=== PATIENT | female | born 1950 | race Caucasian/White ===

== ENCOUNTER 2018-10-21 09:48 | Outpatient (CLI) | payer MEDICARE ==
--- NOTE | 2018-10-21 10:21 | RAD ---
Exam:3 views right knee HISTORY: Osteoarthritis COMPARISON: None FINDINGS: Mild loss of joint space height in the lateral compartment. No fracture or malalignment. Sm all suprapatellar effusion. IMPRESSION: 1. Mild degenerative change in the lateral compartment. Small suprapatellar effusion.
--- NOTE | 2018-10-21 11:12 | RAD ---
LEFT KNEE THREE VIEWS: HISTORY: Primary osteoarthritis of both knees. Left knee pain. FINDINGS: There are moderate degenerative changes. No fracture, dislocation, or bony destruction is seen. No joint effusions are identified. IMPRESSION: Left knee osteoarthritis. POS: [facility]
== END 2018-10-21 09:49 | disposition home or self-care (01) ==
LOC: SCSRAD 09:48
PROVIDERS: ATTEND Family Medicine
DX: M17.0 Bilateral primary osteoarthritis of knee (principal); M25.461 Effusion, right knee

== ENCOUNTER 2023-03-09 16:10 | Inpatient (IN) | payer MEDICARE, BC ==
[2023-03-09] MEDS ORDERED: Iopamidol-370 76% 500 ML MDV (1 ML CHARGE) ONE (16:26)
[2023-03-09 16:46] LABS: Hematocrit 27.2 % (36.0-47.0); Mean Corpuscular HGB CONC 33.1 g/dL (32.0-36.0); Mean Corpuscular Hemoglobin 28.8 pg (27.0-31.0); Mean Corpuscular Volume 87.2 fl (78.0-98.0); Mean Platelet Volume 8.8 fL (7.4-10.4); Platelet Count 533 10x3/uL (130-400); Red Blood Cell (RBC) Count 3.12 mill/uL (4.20-5.40); White Blood Cell (WBC) Count 16.4 10x3/uL (4.8-10.8)
[2023-03-09 16:53] LABS: Delete Auto Diff?? YES; Manual Diff?? YES
[2023-03-09 17:09] LABS: ALT (SGPT) 86 U/L (8-55); AST (SGOT) 135 U/L (5-34); Albumin 2.8 g/dL (3.4-4.8); Alkaline Phosphatase 289 U/L (40-110); Anion Gap 17 mmol/L (10-20); BUN (Urea Nitrogen) 10 mg/dL (9.8-20.1); Bilirubin, Total 0.6 mg/dL (0.2-1.2); Calc. Creatinine Clearance 0 mL/min (70-130); Calcium 8.6 mg/dL (7.8-10.44); Carbon Dioxide 21 mmol/L (23-31); Chloride 102 mmol/L (98-107); Estimated GFR 84; Globulin 3.6 g/dL (2.4-3.5); Glucose 124 mg/dL (80-115); Potassium 2.9 mmol/L (3.5-5.1); Protein, Total 6.4 g/dL (5.8-8.1); Sodium 137 mmol/L (136-145)
[2023-03-09 17:20] LABS: Anisocytosis SLIGHT = 6-15 cells HPF (0-5); Band 45 % (5-11); CellaVision Operator ID LAB.MJL; Eosinophils 1 % (0-10); Lymphocytes 3 % (21-51); Metamyelocyte 1 % (0-0); Monocytes 6 % (0-10); Neutrophil 44 % (42-75); Platelet Adequacy Comment Platelets Increased; Polychromasia SLIGHT = 2-3 cells HPF (0-2); Reflex for Review?? YES; Total Cell Count 104
[2023-03-09 17:23] LABS: Lipase 18 U/L (8-78); Magnesium 1.9 mg/dL (1.6-2.6)
[2023-03-09] MEDS ORDERED: fentaNYL 50 mcg/mL 1 mL Vial ONE (17:50)
[2023-03-09] MEDS ORDERED: Piperacillin/Tazobactam 3.375 GM VIAL ONE (18:10)
[2023-03-09] MEDS ORDERED: Piperacillin/Tazobactam 4.5 GM VIAL ONE (18:14)
[2023-03-09] MEDS ORDERED: metroNIDAZOLE 500 MG/100 ML BAG ONE (18:58)
[2023-03-09 19:00] LABS: Troponin I Less than 0.010 ng/mL (< 0.028)
[2023-03-09] MEDS ORDERED: Magnesium Citrate 300 ML BOT PO SCH (19:45)
[2023-03-09 20:28] LABS: Bacteria/HPF None Seen HPF (None Seen); Bilirubin Negative (Negative); Blood, Urine Negative (Negative); CAUTI Indications for Culture Fever or rigors; Clarity Clear (Clear); Glucose, Urine (Dipstick) Normal (Negative); Ketone, Urine Negative (Negative); Leukocyte Negative Leu/uL (Negative); Nitrite Negative (Negative); Protein, Urine (Dipstick) 10 mg/dL (Neg-Trace); RBC/HPF 0-3 HPF (0-3); Specific Gravity, Urine 1.031 (1.002-1.036); Squamous Epithelial 0-3 HPF (0-3); Urobilinogen Normal mg/dL (Less than 2); WBC/HPF 0-3 HPF (0-3); pH, Urine 5.5 (5.0-9.0)
[2023-03-09 20:30] LABS: Urine Culture Reflex No No
[2023-03-09] MEDS ORDERED: Glucagon 1 MG/ML KIT IM PRN (20:46)
[2023-03-09] MEDS ORDERED: Morphine 4 MG/ML VIAL SLOW IVP PRN (20:46)
[2023-03-09] MEDS ORDERED: TETANUS, DIPHTHERIA TOX,ADULT (TDVAX) 0.5 ML VIAL IM ONE (20:46)
[2023-03-09] MEDS ORDERED: HumaLOG 300 UNITS/3 ML VIAL SC PRN (20:46)
[2023-03-09] MEDS ORDERED: hydrALAZINE 20 MG/ML VIAL SLOW IVP PRN (20:46)
[2023-03-09] MEDS ORDERED: Dextrose 50% Abboject 50 ML SYRINGE SLOW IVP PRN (20:46)
[2023-03-09] MEDS ORDERED: Dextrose 5% in Water 1,000 ML IV PRN (20:46)
[2023-03-09] MEDS ORDERED: Ondansetron PF 4 MG/2 ML Vial IVP PRN (20:46)
[2023-03-09] MEDS ORDERED: Ondansetron ODT 4 MG TAB PO PRN (20:46)
[2023-03-09] MEDS ORDERED: Morphine 2 MG/ML VIAL SLOW IVP PRN (20:46)
[2023-03-09] MEDS: Piperacillin/Tazobactam 3.375 GM in Sodium Chloride 0.9% 100 ML IVPB SCH (23:44)
[2023-03-09] MEDS: Potassium Chloride 20 MEQ in Lactated Ringer's 1,000 ML IV SCH (23:44)
[2023-03-09] MEDS: Ketorolac Tromethamine 30 MG/ML VIAL IVP SCH (23:44)
[2023-03-10 04:04] VITALS: BMI 30.6
[2023-03-10] MEDS: Piperacillin/Tazobactam 3.375 GM in Sodium Chloride 0.9% 100 ML IVPB SCH ×3 (06:24→21:48)
[2023-03-10] MEDS: Levothyroxine Sodium 112 MCG TAB PO SCH (06:25)
[2023-03-10] MEDS: Ketorolac Tromethamine 30 MG/ML VIAL IVP SCH ×3 (06:25→17:38)
[2023-03-10 06:53] LABS: Hematocrit 26.4 % (36.0-47.0); Hemoglobin 8.7 g/dL (12.0-16.0); Mean Corpuscular Hemoglobin 28.8 pg (27.0-31.0); Mean Corpuscular Volume 87.4 fl (78.0-98.0); Platelet Count 537 10x3/uL (130-400); RBC Distribution Width 16.2 % (11.5-14.5); Red Blood Cell (RBC) Count 3.02 mill/uL (4.20-5.40); White Blood Cell (WBC) Count 12.6 10x3/uL (4.8-10.8)
[2023-03-10 07:06] LABS: Delete Auto Diff?? YES; Manual Diff?? YES
[2023-03-10 07:17] LABS: Anion Gap 19 mmol/L (10-20); BUN (Urea Nitrogen) 10 mg/dL (9.8-20.1); Calc. Creatinine Clearance 93 mL/min (70-130); Calcium 8.3 mg/dL (7.8-10.44); Carbon Dioxide 21 mmol/L (23-31); Chloride 104 mmol/L (98-107); Estimated GFR 87; Glucose 113 mg/dL (80-115); Potassium 3.1 mmol/L (3.5-5.1); Sodium 141 mmol/L (136-145)
[2023-03-10] MEDS: Potassium Chloride 20 MEQ in Lactated Ringer's 1,000 ML IV SCH ×2 (09:28→16:06)
[2023-03-10] MEDS: Pantoprazole 40 MG VIAL IVP SCH (09:29)
[2023-03-10] MEDS: Saccharomyces boulardii 250 MG CAP PO SCH (09:29)
[2023-03-10] MEDS ORDERED: SUGAMMADEX SODIUM 200 MG/2 ML VIAL ONE (10:09)
[2023-03-10] MEDS ORDERED: Vasopressin 20 UNITS/ML VIAL ONE (10:09)
[2023-03-10] MEDS ORDERED: fentaNYL 50 mcg/mL 1 mL Vial ONE ×3 (10:09→14:53)
[2023-03-10] MEDS ORDERED: Famotidine/PF 20 mg/2ml Vial ONE (10:09)
[2023-03-10 10:23] LABS: Anisocytosis SLIGHT = 6-15 cells HPF (0-5); Band 23 % (5-11); CellaVision Operator ID LAB.NR; Eosinophils 1 % (0-10); Lymphocytes 2 % (21-51); Macrocytosis SLIGHT = 6-15 cells HPF (0-5); Monocytes 4 % (0-10); Neutrophil 70 % (42-75); Platelet Adequacy Comment Platelets Increased; Polychromasia SLIGHT = 2-3 cells HPF (0-2); Total Cell Count 101; Vacuoles SLIGHT
[2023-03-10] MEDS ORDERED: ePHEDrine Sulfate 50 MG/10 ML VIAL ONE ×2 (10:42→12:48)
[2023-03-10] MEDS ORDERED: Dexamethasone 20 MG/5 ML VIAL ONE (10:42)
[2023-03-10] MEDS ORDERED: PHENYLEPHRINE-NS 100 MCG/ML 10 ML SYRINGE ONE (10:42)
[2023-03-10] MEDS ORDERED: Lidocaine 1% PF 5 ML VIAL ONE (10:42)
[2023-03-10] MEDS ORDERED: Rocuronium Bromide 10 MG/ML (10ML VIAL) ONE (10:42)
[2023-03-10] MEDS ORDERED: Ondansetron PF 4 MG/2 ML Vial ONE (10:42)
[2023-03-10] MEDS ORDERED: PROPOFOL 200 MG/20 ML VIAL ONE (10:42)
[2023-03-10] MEDS ORDERED: Metoclopramide HCl 10 MG/2 ML VIAL ONE (10:42)
[2023-03-10] MEDS ORDERED: Albumin 5% 250 ML ONE (12:48)
[2023-03-10] MEDS ORDERED: Promethazine HCl 25 MG/ML VIAL IM PRN (14:36)
[2023-03-10] MEDS ORDERED: Ondansetron HCl/PF 4 MG/2 ML Vial IVP PRN (14:36)
[2023-03-10] MEDS ORDERED: Promethazine HCl 25 MG/ML VIAL ONE (14:54)
[2023-03-10] MEDS ORDERED: Acetaminophen 500 MG TAB PO SCH (15:15)
[2023-03-10] MEDS: Acetaminophen 500 MG TAB PO SCH ×2 (17:37→21:48)
[2023-03-10] MEDS ORDERED: Non-Formulary Item 1 EACH (Ibandronate Sodium [Boniva] 150 MG Tablet) PO SCH (17:45)
[2023-03-10 18:27] LABS: Free T4 (Free Thyroxine) 0.99 ng/dL (0.70-1.48)
[2023-03-11] MEDS: Potassium Chloride 20 MEQ in Lactated Ringer's 1,000 ML IV SCH ×2 (01:04→09:45)
[2023-03-11] MEDS: Ketorolac Tromethamine 30 MG/ML VIAL IVP SCH ×5 (01:05→23:51)
[2023-03-11] MEDS: Piperacillin/Tazobactam 3.375 GM in Sodium Chloride 0.9% 100 ML IVPB SCH ×3 (06:03→21:50)
[2023-03-11] MEDS: Levothyroxine Sodium 112 MCG TAB PO SCH (06:04)
[2023-03-11 06:53] LABS: Hematocrit 21.8 % (36.0-47.0); Hemoglobin 7.1 g/dL (12.0-16.0); Mean Corpuscular HGB CONC 32.6 g/dL (32.0-36.0); Mean Corpuscular Hemoglobin 28.6 pg (27.0-31.0); Mean Corpuscular Volume 87.9 fl (78.0-98.0); Mean Platelet Volume 9.1 fL (7.4-10.4); Platelet Count 541 10x3/uL (130-400); RBC Distribution Width 16.8 % (11.5-14.5); Red Blood Cell (RBC) Count 2.48 mill/uL (4.20-5.40); White Blood Cell (WBC) Count 12.4 10x3/uL (4.8-10.8)
[2023-03-11 07:01] LABS: Manual Diff?? YES
[2023-03-11 07:02] LABS: Delete Auto Diff?? YES
[2023-03-11 07:20] LABS: ALT (SGPT) 58 U/L (8-55); AST (SGOT) 59 U/L (5-34); Albumin 2.4 g/dL (3.4-4.8); Alkaline Phosphatase 186 U/L (40-110); Anion Gap 16 mmol/L (10-20); BUN (Urea Nitrogen) 17 mg/dL (9.8-20.1); Bilirubin, Total 0.3 mg/dL (0.2-1.2); Calc. Creatinine Clearance 82 mL/min (70-130); Calcium 7.7 mg/dL (7.8-10.44); Carbon Dioxide 22 mmol/L (23-31); Chloride 107 mmol/L (98-107); Estimated GFR 75; Globulin 2.7 g/dL (2.4-3.5); Glucose 173 mg/dL (80-115); Magnesium 2.3 mg/dL (1.6-2.6); Potassium 3.8 mmol/L (3.5-5.1); Protein, Total 5.1 g/dL (5.8-8.1); Sodium 141 mmol/L (136-145)
[2023-03-11 08:21] LABS: Band 45 % (5-11); Lymphocytes 9 % (21-51); Monocytes 3 % (0-10); Neutrophil 43 % (42-75); Platelet Adequacy Comment Appears Increased; Polychromasia SLIGHT = 2-3 cells (100X) (0-2/hpf)
[2023-03-11] MEDS: Aspirin 81 mg Enteric Coated Tablet PO SCH (08:33)
[2023-03-11] MEDS: Saccharomyces boulardii 250 MG CAP PO SCH (08:33)
[2023-03-11] MEDS: Rosuvastatin 10 MG TAB PO SCH (08:33)
[2023-03-11] MEDS: Pantoprazole 40 MG VIAL IVP SCH (08:33)
[2023-03-11] MEDS: Acetaminophen 500 MG TAB PO SCH ×4 (08:33→21:51)
[2023-03-11] MEDS ORDERED: Potassium Chloride 20 MEQ in Lactated Ringer's 1,000 ML IV SCH (09:45)
[2023-03-11] MEDS: traMADol HCl 50 MG TAB PO SCH ×2 (17:20→23:50)
[2023-03-12] MEDS ORDERED: Ibuprofen 600 MG TAB PO SCH (06:00)
[2023-03-12] MEDS: traMADol HCl 50 MG TAB PO SCH ×3 (06:28→18:19)
[2023-03-12] MEDS: Levothyroxine Sodium 112 MCG TAB PO SCH (06:29)
[2023-03-12] MEDS: Ketorolac Tromethamine 30 MG/ML VIAL IVP SCH (06:30)
[2023-03-12] MEDS: Piperacillin/Tazobactam 3.375 GM in Sodium Chloride 0.9% 100 ML IVPB SCH ×3 (06:30→23:31)
[2023-03-12 07:04] LABS: Delete Auto Diff?? YES; Hematocrit 20.6 % (36.0-47.0); Hemoglobin 6.7 g/dL (12.0-16.0); Manual Diff?? YES; Mean Corpuscular HGB CONC 32.5 g/dL (32.0-36.0); Mean Corpuscular Hemoglobin 28.8 pg (27.0-31.0); Mean Corpuscular Volume 88.4 fl (78.0-98.0); Mean Platelet Volume 8.9 fL (7.4-10.4); Platelet Count 458 10x3/uL (130-400); RBC Distribution Width 16.7 % (11.5-14.5); Red Blood Cell (RBC) Count 2.33 mill/uL (4.20-5.40); White Blood Cell (WBC) Count 13.3 10x3/uL (4.8-10.8)
[2023-03-12 07:35] LABS: ALT (SGPT) 42 U/L (8-55); AST (SGOT) 39 U/L (5-34); Albumin 2.4 g/dL (3.4-4.8); Alkaline Phosphatase 159 U/L (40-110); Anion Gap 11 mmol/L (10-20); BUN (Urea Nitrogen) 18 mg/dL (9.8-20.1); Band 17 % (5-11); Bilirubin, Total 0.3 mg/dL (0.2-1.2); Calc. Creatinine Clearance 75 mL/min (70-130); Calcium 7.8 mg/dL (7.8-10.44); Carbon Dioxide 25 mmol/L (23-31); CellaVision Operator ID LAB.GE; Chloride 106 mmol/L (98-107); Estimated GFR 67; Globulin 2.9 g/dL (2.4-3.5); Glucose 122 mg/dL (80-115); Lymphocytes 6 % (21-51); Magnesium 2.4 mg/dL (1.6-2.6); Monocytes 6 % (0-10); Myelocyte 2 % (0-0); Neutrophil 69 % (42-75); Platelet Adequacy Comment Platelets Increased; Polychromasia SLIGHT = 2-3 cells HPF (0-2); Potassium 3.6 mmol/L (3.5-5.1); Protein, Total 5.3 g/dL (5.8-8.1); Sodium 138 mmol/L (136-145); Total Cell Count 101
[2023-03-12] MEDS: Pantoprazole 40 MG VIAL IVP SCH (09:46)
[2023-03-12] MEDS: Acetaminophen 500 MG TAB PO SCH ×4 (09:47→23:26)
[2023-03-12] MEDS: Aspirin 81 mg Enteric Coated Tablet PO SCH (09:47)
[2023-03-12] MEDS: Saccharomyces boulardii 250 MG CAP PO SCH (09:47)
[2023-03-12] MEDS: Rosuvastatin 10 MG TAB PO SCH (09:47)
[2023-03-12] MEDS: Ferrous Sulfate 325 MG TAB PO SCH (10:10)
[2023-03-12] MEDS: traMADol HCl 50 MG TAB PO PRN (10:10)
[2023-03-12] MEDS: Ascorbic Acid 500 mg Chewable Tablet PO SCH (10:10)
[2023-03-12] MEDS: CeleCOXIB 100 MG CAP PO SCH ×2 (10:10→23:25)
[2023-03-12] MEDS ORDERED: Sodium Chloride 0.9% 100 ML ONE (15:29)
[2023-03-12 21:52] LABS: Hemoglobin 8.1 g/dL (12.0-16.0); Platelet Count 476 10x3/uL (130-400)
[2023-03-13] MEDS: traMADol HCl 50 MG TAB PO SCH ×4 (02:14→17:29)
[2023-03-13] MEDS: Levothyroxine Sodium 112 MCG TAB PO SCH (06:37)
[2023-03-13] MEDS: Piperacillin/Tazobactam 3.375 GM in Sodium Chloride 0.9% 100 ML IVPB SCH ×3 (06:38→20:28)
[2023-03-13] MEDS ORDERED: FLU VACC QS2023(65UP)/MF59C/PF 60 MCG/0.5 ML SYRINGE IM ONE (09:00)
[2023-03-13] MEDS: Ferrous Sulfate 325 MG TAB PO SCH (09:12)
[2023-03-13] MEDS: Rosuvastatin 10 MG TAB PO SCH (09:12)
[2023-03-13] MEDS: CeleCOXIB 100 MG CAP PO SCH ×2 (09:12→20:27)
[2023-03-13] MEDS: Aspirin 81 mg Enteric Coated Tablet PO SCH (09:13)
[2023-03-13] MEDS: Saccharomyces boulardii 250 MG CAP PO SCH (09:13)
[2023-03-13] MEDS: Acetaminophen 500 MG TAB PO SCH ×4 (09:13→20:27)
[2023-03-13] MEDS: Ascorbic Acid 500 mg Chewable Tablet PO SCH (09:13)
[2023-03-13 09:34] LABS: #Basophils 0.1 thou/uL (0.0-0.2); #Eosinphils 0.4 thou/uL (0.0-0.7); #Neutrophils 14.7 thou/uL (1.40-6.50); %Basophils 0.3 % (0.0-1.0); %Eosinophils 2.4 % (0.0-10.0); %Lymphocytes 5.4 % (21.0-51.0); %Monocytes 5.6 % (0.0-10.0); %Neutrophils 83.7 % (42.0-75.0); Hematocrit 26.2 % (36.0-47.0); Hemoglobin 8.6 g/dL (12.0-16.0); Mean Corpuscular HGB CONC 32.8 g/dL (32.0-36.0); Mean Corpuscular Hemoglobin 29.6 pg (27.0-31.0); Mean Platelet Volume 8.6 fL (7.4-10.4); Platelet Count 477 10x3/uL (130-400); Red Blood Cell (RBC) Count 2.91 mill/uL (4.20-5.40); White Blood Cell (WBC) Count 17.6 10x3/uL (4.8-10.8)
[2023-03-13] MEDS ORDERED: Mag-Al 1200 mg/1200 mg/30 ML UDCUP PO PRN (14:48)
[2023-03-14] MEDS: traMADol HCl 50 MG TAB PO SCH ×5 (00:14→23:47)
[2023-03-14] MEDS: traMADol HCl 50 MG TAB PO PRN (00:14)
[2023-03-14] MEDS: Piperacillin/Tazobactam 3.375 GM in Sodium Chloride 0.9% 100 ML IVPB SCH ×3 (05:21→20:37)
[2023-03-14] MEDS: Levothyroxine Sodium 112 MCG TAB PO SCH (05:23)
[2023-03-14 05:56] LABS: #Basophils 0.1 thou/uL (0.0-0.2); #Eosinphils 0.6 thou/uL (0.0-0.7); #Monocytes 0.8 thou/uL (0.11-0.59); #Neutrophils 8.4 thou/uL (1.40-6.50); %Basophils 0.4 % (0.0-1.0); %Eosinophils 5.5 % (0.0-10.0); %Lymphocytes 8.3 % (21.0-51.0); %Monocytes 6.7 % (0.0-10.0); %Neutrophils 74.9 % (42.0-75.0); Hematocrit 25.9 % (36.0-47.0); Hemoglobin 8.3 g/dL (12.0-16.0); Mean Corpuscular Hemoglobin 29.1 pg (27.0-31.0); Mean Corpuscular Volume 90.9 fl (78.0-98.0); Mean Platelet Volume 8.8 fL (7.4-10.4); Platelet Count 423 10x3/uL (130-400); RBC Distribution Width 16.5 % (11.5-14.5); Red Blood Cell (RBC) Count 2.85 mill/uL (4.20-5.40); White Blood Cell (WBC) Count 11.2 10x3/uL (4.8-10.8)
[2023-03-14 06:21] LABS: Anion Gap 12 mmol/L (10-20); BUN (Urea Nitrogen) 15 mg/dL (9.8-20.1); Calc. Creatinine Clearance 98 mL/min (70-130); Calcium 8.2 mg/dL (7.8-10.44); Carbon Dioxide 26 mmol/L (23-31); Chloride 103 mmol/L (98-107); Estimated GFR 93; Glucose 110 mg/dL (80-115); Potassium 3.4 mmol/L (3.5-5.1); Sodium 138 mmol/L (136-145)
[2023-03-14] MEDS ORDERED: Morphine 4 MG/ML VIAL SLOW IVP SCH (09:45)
[2023-03-14] MEDS: CeleCOXIB 100 MG CAP PO SCH ×2 (09:47→20:36)
[2023-03-14] MEDS: Rosuvastatin 10 MG TAB PO SCH (09:47)
[2023-03-14] MEDS: Ferrous Sulfate 325 MG TAB PO SCH (09:47)
[2023-03-14] MEDS: Ascorbic Acid 500 mg Chewable Tablet PO SCH (09:47)
[2023-03-14] MEDS: Aspirin 81 mg Enteric Coated Tablet PO SCH (09:47)
[2023-03-14] MEDS: Saccharomyces boulardii 250 MG CAP PO SCH (09:48)
[2023-03-14] MEDS: Acetaminophen 500 MG TAB PO SCH ×4 (09:48→20:37)
[2023-03-15] MEDS: Levothyroxine Sodium 112 MCG TAB PO SCH (05:17)
[2023-03-15] MEDS: traMADol HCl 50 MG TAB PO SCH ×4 (05:17→23:30)
[2023-03-15] MEDS: Piperacillin/Tazobactam 3.375 GM in Sodium Chloride 0.9% 100 ML IVPB SCH ×3 (05:17→20:10)
[2023-03-15] MEDS: Ascorbic Acid 500 mg Chewable Tablet PO SCH (08:14)
[2023-03-15] MEDS: CeleCOXIB 100 MG CAP PO SCH ×2 (08:14→20:11)
[2023-03-15] MEDS: Aspirin 81 mg Enteric Coated Tablet PO SCH (08:14)
[2023-03-15] MEDS: Acetaminophen 500 MG TAB PO SCH ×4 (08:14→20:11)
[2023-03-15] MEDS: Ferrous Sulfate 325 MG TAB PO SCH (08:15)
[2023-03-15] MEDS: Rosuvastatin 10 MG TAB PO SCH (08:15)
[2023-03-15] MEDS: Saccharomyces boulardii 250 MG CAP PO SCH (08:15)
[2023-03-15 17:02] LABS: Anion Gap 11 mmol/L (10-20); BUN (Urea Nitrogen) 12 mg/dL (9.8-20.1); Calc. Creatinine Clearance 92 mL/min (70-130); Calcium 8.1 mg/dL (7.8-10.44); Carbon Dioxide 27 mmol/L (23-31); Chloride 104 mmol/L (98-107); Estimated GFR 86; Glucose 141 mg/dL (80-115); Potassium 3.2 mmol/L (3.5-5.1); Sodium 139 mmol/L (136-145)
[2023-03-16] MEDS: Levothyroxine Sodium 112 MCG TAB PO SCH (05:28)
[2023-03-16] MEDS: traMADol HCl 50 MG TAB PO SCH ×2 (05:28→12:07)
[2023-03-16 05:46] LABS: Hematocrit 25.8 % (36.0-47.0); Hemoglobin 8.1 g/dL (12.0-16.0); Mean Corpuscular HGB CONC 31.4 g/dL (32.0-36.0); Mean Corpuscular Hemoglobin 28.7 pg (27.0-31.0); Mean Corpuscular Volume 91.5 fl (78.0-98.0); Mean Platelet Volume 8.6 fL (7.4-10.4); Platelet Count 362 10x3/uL (130-400); RBC Distribution Width 16.3 % (11.5-14.5); Red Blood Cell (RBC) Count 2.82 mill/uL (4.20-5.40); White Blood Cell (WBC) Count 10.7 10x3/uL (4.8-10.8)
[2023-03-16 06:00] LABS: Delete Auto Diff?? YES; Manual Diff?? YES
[2023-03-16 06:10] LABS: Anion Gap 11 mmol/L (10-20); BUN (Urea Nitrogen) 10 mg/dL (9.8-20.1); Calc. Creatinine Clearance 97 mL/min (70-130); Calcium 7.6 mg/dL (7.8-10.44); Carbon Dioxide 27 mmol/L (23-31); Chloride 105 mmol/L (98-107); Estimated GFR 91; Glucose 124 mg/dL (80-115); Potassium 3.2 mmol/L (3.5-5.1); Sodium 140 mmol/L (136-145)
[2023-03-16 07:42] LABS: Band 4 % (5-11); CellaVision Operator ID LAB.CMB; Eosinophils 11 % (0-10); Large Platelets 1.8 % (0-5); Lymphocytes 8 % (21-51); Metamyelocyte 2 % (0-0); Monocytes 5 % (0-10); Myelocyte 1 % (0-0); Neutrophil 67 % (42-75); Platelet Adequacy Comment Platelets Normal; Polychromasia SLIGHT = 2-3 cells HPF (0-2); Total Cell Count 111
[2023-03-16] MEDS: Aspirin 81 mg Enteric Coated Tablet PO SCH (08:53)
[2023-03-16] MEDS: Saccharomyces boulardii 250 MG CAP PO SCH (08:53)
[2023-03-16] MEDS: Rosuvastatin 10 MG TAB PO SCH (08:53)
[2023-03-16] MEDS: Acetaminophen 500 MG TAB PO SCH ×2 (08:53→12:06)
[2023-03-16] MEDS: Ascorbic Acid 500 mg Chewable Tablet PO SCH (08:53)
[2023-03-16] MEDS: Ferrous Sulfate 325 MG TAB PO SCH (08:53)
[2023-03-16] MEDS ORDERED: Lidocaine 4% Topical Sol 50 ML BOT TOP SCH (09:00)
[2023-03-16] MEDS: CeleCOXIB 100 MG CAP PO SCH (09:00)
[2023-03-16] MEDS: traMADol HCl 50 MG TAB PO PRN (09:03)
[2023-03-16 12:54] VITALS: BP 150/85; TEMP 97.8
== END 2023-03-16 12:41 | disposition home health service (06) | DRG 853 ==
LOC: ERS 16:10 → T4-A 19:39
PROVIDERS: ADMIT Specialist; ATTEND Specialist
PROC: 3E03329 Introduction of Other Anti-infective into Peripheral Vein, Percutaneous Approach (ICD-10-PCS; 2023-03-09)
PROC: 0DTN0ZZ Resection of Sigmoid Colon, Open Approach (ICD-10-PCS; principal; 2023-03-10)
PROC: 0D1N0Z4 Bypass Sigmoid Colon to Cutaneous, Open Approach (ICD-10-PCS; 2023-03-10)
PROC: 30233N1 Transfusion of Nonautologous Red Blood Cells into Peripheral Vein, Percutaneous Approach (ICD-10-PCS; 2023-03-10)
PROC: 3E033XZ Introduction of Vasopressor into Peripheral Vein, Percutaneous Approach (ICD-10-PCS; 2023-03-10)
PROC: 30233J1 Transfusion of Nonautologous Serum Albumin into Peripheral Vein, Percutaneous Approach (ICD-10-PCS; 2023-03-10)
PROC: 0W9J0ZZ Drainage of Pelvic Cavity, Open Approach (ICD-10-PCS; 2023-03-10)
PROC: 0W9F0ZZ Drainage of Abdominal Wall, Open Approach (ICD-10-PCS; 2023-03-10)
DX: A41.9 Sepsis, unspecified organism (principal); K65.1 Peritoneal abscess; D62 Acute posthemorrhagic anemia; K63.2 Fistula of intestine; K57.20 Diverticulitis of large intestine with perforation and abscess without bleeding; I10 Essential (primary) hypertension; E78.5 Hyperlipidemia, unspecified; E11.9 Type 2 diabetes mellitus without complications; E03.9 Hypothyroidism, unspecified; F17.210 Nicotine dependence, cigarettes, uncomplicated; E86.0 Dehydration; Z79.899 Other long term (current) drug therapy; Z88.5 Allergy status to narcotic agent; Z88.8 Allergy status to other drugs, medicaments and biological substances; Z79.4 Long term (current) use of insulin; Z79.82 Long term (current) use of aspirin; Z98.890 Other specified postprocedural states; I95.9 Hypotension, unspecified
CPT/HCPCS: 36415; 36416; 36430; 71045; 74177; 80048; 80053; 81001; 83605; 83690; 83735; 83880; 84439; 84443; 84481; 84484; 85025; 85060; 86850; 86900; 86901; 87040; 88307; 93005; 96365; 96367; 96375; 97139; A4314; C1713; C1751; C1776; C9113; J1100; J1650; J1885; J2270; J2405; J2543; J2550; J2704; J2765; J3010; J3480; J3490; J7120; P9016; P9045; Q9967; S0028

== ENCOUNTER 2023-04-11 08:07 | Outpatient (CLI) | payer MEDICARE, BC ==
[2023-04-11 09:11] LABS: #Basophils 0.1 thou/uL (0.0-0.2); #Eosinphils 0.3 thou/uL (0.0-0.7); #Monocytes 0.8 thou/uL (0.11-0.59); #Neutrophils 8.1 thou/uL (1.40-6.50); %Basophils 0.7 % (0.0-1.0); %Monocytes 7.8 % (0.0-10.0); %Neutrophils 75.1 % (42.0-75.0); Hematocrit 40.4 % (36.0-47.0); Hemoglobin 12.6 g/dL (12.0-16.0); Mean Corpuscular HGB CONC 31.2 g/dL (32.0-36.0); Mean Corpuscular Hemoglobin 29.4 pg (27.0-31.0); Mean Corpuscular Volume 94.2 fl (78.0-98.0); Mean Platelet Volume 9.4 fL (7.4-10.4); Platelet Count 329 10x3/uL (130-400); RBC Distribution Width 17.2 % (11.5-14.5); Red Blood Cell (RBC) Count 4.29 mill/uL (4.20-5.40); White Blood Cell (WBC) Count 10.7 10x3/uL (4.8-10.8)
[2023-04-11 09:34] LABS: Anion Gap 13 mmol/L (10-20); BUN (Urea Nitrogen) 9 mg/dL (9.8-20.1); Calc. Creatinine Clearance 0 mL/min (70-130); Calcium 10.3 mg/dL (7.8-10.44); Carbon Dioxide 30 mmol/L (23-31); Chloride 104 mmol/L (98-107); Estimated GFR 86; Glucose 122 mg/dL (80-115); Potassium 3.9 mmol/L (3.5-5.1); Sodium 143 mmol/L (136-145)
== END 2023-04-11 08:08 | disposition home or self-care (01) ==
LOC: CT 08:07
PROVIDERS: ATTEND Specialist
DX: K57.20 Diverticulitis of large intestine with perforation and abscess without bleeding (principal); Z93.3 Colostomy status
CPT/HCPCS: 36415; 74177; 80048; 85025